=== PATIENT | female | born 2000 | race Caucasian/White ===

== ENCOUNTER 2023-03-05 23:10 | Emergency (ER) | payer OTHER ==
[2023-03-05] MEDS ORDERED: diphenhydrAMINE 25 MG CAP ONE (23:59)
[2023-03-05] MEDS ORDERED: Famotidine 20 MG TAB ONE (23:59)
[2023-03-05] MEDS ORDERED: predniSONE 20 MG TAB ONE (23:59)
[2023-03-06] MEDS ORDERED: Famotidine 20 MG TAB ONE
== END 2023-03-06 00:09 | disposition home or self-care (01) ==
LOC: ERS 23:10
DX: R21 Rash and other nonspecific skin eruption (principal); F17.290 Nicotine dependence, other tobacco product, uncomplicated
CPT/HCPCS: 87081; 87430; 99283; J7512